=== PATIENT | male | born 1990 | race Caucasian/White ===

== ENCOUNTER 2019-05-15 23:44 | Emergency (ER) | payer OTHER | END 2019-05-16 01:27 | disposition other institution (70) | LOC: ED 23:44 | DX: Z02.89 Encounter for other administrative examinations (principal) ==

== ENCOUNTER 2019-05-15 23:44 | Emergency (ER) | payer SELFPAY ==
[~2019-05-15] VITALS: Ht 185.4 cm; Wt 95.3 kg
[2019-05-15 23:48] VITALS: BP 143/93; Ht 185.4 cm; Wt 95.3 kg
== END 2019-05-16 01:27 | disposition other institution (70) ==
LOC: ED 23:44
DX: S61.412A Laceration without foreign body of left hand, initial encounter (principal); J45.909 Unspecified asthma, uncomplicated; W22.8XXA Striking against or struck by other objects, initial encounter; Y93.89 Activity, other specified; Y92.89 Other specified places as the place of occurrence of the external cause; Y99.8 Other external cause status
CPT/HCPCS: 90715